=== PATIENT | female | born 1975 | race Caucasian/White ===

== ENCOUNTER → 2025-09-04 | Outpatient (CLI) | payer SELFPAY ==
--- NOTE | 2025-09-04 08:25 | BI_ITS ---
EXAM: SCRN MAMM (CAD)W/NORAH BILAT DATE: 09/04/2025 CLINICAL HISTORY: F, Age 50 y/o , SCREENING No family history. TECHNIQUE: Procedure Code: [id number] Modality: MG Procedure: SCRN MAMM (CAD)W/NORAH BILAT COMPARISON: This is a baseline examination. FINDINGS: TISSUE DENSITY: There are scattered areas of fibroglandular density. Bilateral Breast Mammographic Findings: No significant masses, calcifications or other abnormalities are identified. BI/SCRN MAMM (CAD)W/NORAH BILAT IMPRESSION: Unremarkable bilateral screening mammogram. OVERALL FINAL ASSESSMENT BI-RADS 1: NEGATIVE. RECOMMENDATION: Routine annual follow-up in 1 Year Additional Recommendation none A letter with findings and recommendations will be mailed to the patient. Reading Location: [id number]
== END | disposition home or self-care (01) ==
PROVIDERS: PCP Physician Assistant; Referring Provider Physician Assistant; Visit Provider Physician Assistant
DX: Z12.31 Encounter for screening mammogram for malignant neoplasm of breast (principal)
CPT/HCPCS: 77063; 77067

== ENCOUNTER 2025-10-24 08:10 | Day surgery (SDC) | payer SELFPAY ==
[2025-10-24] VITALS (8 sets, daily range): BP systolic 108–139; BP diastolic 49–83; PULSE 66–89; RESP 16–18; TEMP 36.1–36.8; O2SAT 97–100; BMI 32.0
[2025-10-24] MEDS: Lactated Ringers 1,000 ML 15 ML IV (08:15)
--- NOTE | 2025-10-24 08:47 | H&P.OPEN ---
[facility] - General General Date of Service: 10/24/25 HPI Narrative CHANELL FRAGA, is a 50 F who presents for screening colonoscopy. Patient never had previous colonoscopy. Patient sister was diagnosed with colon cancer at age 57 and mother had 18 polyps. Patient has bowel movements daily denies any blood. Patient denies any chronic abdominal pain/nausea/vomiting/reflux. [facility] Medical History (Updated 10/24/25 @ 08:[address] Lety Holcomb MD) Liver cyst Non-smoker History of pain when walking History of edema Home Medications ?Medication ?Instructions ?Recorded ?Last Taken ?Type cholecalciferol (vitamin D3) 25 25 mcg PO DAILY 10/23/25 10/23/25 History mcg (1,000 unit) capsule (Vitamin D3) chromium 200 mcg tablet 200 mcg PO DAILY 10/23/25 10/23/25 History coenzyme Q10 100 mg capsule (Co 100 mg PO DAILY 10/23/25 Unknown History Q-10) cyanocobalamin (vitamin B-12) 1,000 mcg PO DAILY 10/23/25 10/23/25 History 1,000 mcg tablet (Vitamin B-12) glucosamine 375 yi-nafwjasun-mzc 1 tab PO DAILY 10/23/25 Unknown History no1 500 mg-C 15 mg-claudia 0.5 mg tablet (Ohlihzaekoe-Ioldagreczc-JID Complex) multivitamin (Daily Multi-Vitamin 1 tab PO DAILY 10/23/25 10/23/25 History tablet) omega 3 350 mg-dha 235 mg-epa 90 1 cap PO DAILY 10/23/25 10/23/25 History mg-fish oil 597 mg capsule,delay rel ([place]-3) Allergy/AdvReac Type Severity Reaction Status Date / Time No Known Allergies Allergy Verified 10/23/25 10:40 Surgical History (Updated 10/23/25 @ 10:49 by Sola Bauman) Hx of tubal ligation History of 2 sections Social History Smoking Status: Never smoker Past Medical/Surgical History Planned Operation Planned Operative Procedure(s): COLONOSCOPY-OA Previous Hospitalizations/Surgeries HX Hospitalizations: No Any Problems With Anesthesia: No You/Your Family Experience Fever (Hyperthermia) With Anes: No Cholinesterase deficiency: No Cardiovascular Hx Hypertension: No Respiratory Hx Sleep Apnea: No Hx Respiratory Tract Infection/Cold (presently): No Do You Snore Loudly (louder than talking or can be heard): No Do You Often Feel Tired/ Fatigued/ Sleepy Dring Daytime?: No Has Anyone Observed You Stop Breathing During Sleep?: No Result (for STOP score): Negative Smoking Status: Never smoker Neurological Does patient have nerve stimulator: No Reproduction : No Miscellaneous Recent Exposure to Contagious Disease: No Allergies No Known Allergies Allergy (Verified 10/23/25 10:40) Discharge Is Pt Admitted From a Senior Living, or a Long Term: No After D/C, Where Do you Plan to Go: Return Home Vital Signs Vital Signs Vital Signs: 10/24/25 08:30 10/24/25 08:30 10/24/25 08:30 Temperature 97 F L Temperature Source Temporal Pulse Rate 85 Respiratory Rate 16 Respiratory Pattern Normal Blood Pressure 139/83 H Blood Pressure Mean 101 Blood Pressure Source Monitor Blood Pressure Position Semi-Fowlers Blood Pressure Location Left Forearm Baseline BP 139/83 Pulse Ox 100 Oxygen Delivery Method Room Air Weight Weight: 180 lb 12.465 oz Body Mass Index (BMI) 32.0 Physical Exam Const alert, oriented x3 and no apparent distress HEENT normocephalic and head/scalp atraumatic Resp normal respiratory effort Cardio regular rate GI soft to palpation and non-tender; Negative for non-distended Palpation: Negative for guarding Extremity no clubbing, cyanosis or edema Skin no rashes or lesions noted Neuro CN's II-XII intact bilaterally Psych mental status grossly normal Assessment & Plan Assessment/Plan (1) Family history of colon cancer: Surgery Risks - Colonoscopy I discussed with the patient the risks of the procedure: Yes Risks Include but are not Limited To: Risks include but are not limited to: Bleeding, perforation requiring further surgery, inability to complete colonoscopy requiring barium enema.
--- NOTE | 2025-10-24 09:37 | PRE.ANES_ITS ---
ASA Classification* ASA Classification ASA Classification: 1 Assessment & Plan Anesthesia* Anesthesia Assessment Anesthesia Assessment: Discussed sedation and/or anesthesia options, risks, benefits, and alternatives with patient/parents/legal guardian/POA. Questions invited. The patient/parents/legal guardian/POA seems to understand and agrees to proceed with anesthesia plan. Reviewed the physical assessment, medical history, allergy history and patient home medications list prior to surgery/procedure/anesthetic and documented any changes. Performed airway and anesthesia risk assessments. Patient denies all PMHx; no medical problems. 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 When Was Last Pacemaker Check QUESTION #4 FULL TEXT: You/Your Family Experience fever (hyperthermia) with Anesthesia Last Oral Intake Last Oral intake: Last Oral Intake NPO since 23:30 10/24/25 08:30 Meds taken in AM with sips of No 10/24/25 08:30 water? Meds patient instructed to take am of surgery PONV PONV - malt house loader: PONV - malt house loader Female Yes 10/23/25 10:49 HX of Motion Sickness No 10/23/25 10:49 HX of N/V After Surgery No 10/23/25 10:49 Non-Smoker Yes 10/23/25 10:49 Duration of Surgery greater No 10/23/25 10:49 than 60 minutes Number of Risk Factors 2 10/23/25 10:49 PONV Score Moderate Risk 10/23/25 10:49 Height & Weight Height & Weight: Anesthesia: Height & Weight Height 5 ft 3 in 10/24/25 08:30 Weight: 82 kg 10/24/25 08:30 Body Mass Index (BMI) 32.0 10/24/25 08:30 Respiratory Assessment Respiratory Assessment - malt house loader: Respiratory Tract Infection Hx - malt house loader Hx Respiratory Tract Infection No 10/24/25 08:48 STOP Sleep Apnea STOP Sleep Apnea - malt house loader: STOP Sleep Apnea - malt house loader Hx Hypertension No 10/24/25 08:48 Hx Sleep Apnea No 10/24/25 08:48 CPAP BIPAP Do you snore loudly (louder No 10/24/25 08:48 than talking or can be heard Do you often feel tired/ No 10/24/25 08:48 fatigued/ sleepy during daytime? Has anyone observed you stop No 10/24/25 08:48 breathing during sleep? STOP Results Negative 10/24/25 09:30 QUESTION #5 FULL TEXT : Do you snore loudly (louder than talking or can be heard through closed doors)? 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 Specify any problems Hx of Preganancy in last 3 No 10/23/25 10:49 Months Nurse Filling Out Transfusion VCHRISTIN 10/23/25 10:49 & Questions: Date: 10/23/25 10/23/25 10:49 Time: 10:50 10/23/25 10:49 Patient unable to answer at this time (ie. confused, unrespo /Reproduction History /Reproductive History - malt house loader: /Reproductive Hx- malt house loader Hx Now No 10/24/25 08:48 Gestational Age (in weeks): EDC: Hx Hx Para Hx Section SAB No 10/23/25 10:49 Does the father of the baby or his family experience fever w Father of the baby Malignant Hypertension history comment Active Medications Active Medications: Current Medications Generic Name Dose Route Start Last Admin Trade Name Freq PRN Reason Stop Dose Admin Lactated Ringer's 1,000 mls @ 15 mls/hr 10/24/25 08:15 IV .Q48H WILLIAN PFSH Medical History (Updated 10/24/25 @ 08:[address] Lety Holcomb MD) Liver cyst Non-smoker History of pain when walking History of edema Home Medications ?Medication ?Instructions ?Recorded ?Last Taken ?Type cholecalciferol (vitamin D3) 25 25 mcg PO DAILY 10/23/25 History mcg (1,000 unit) capsule (Vitamin D3) chromium 200 mcg tablet 200 mcg PO DAILY 10/23/25 History coenzyme Q10 100 mg capsule (Co 100 mg PO DAILY Unknown History Q-10) cyanocobalamin (vitamin B-12) 1,000 mcg PO DAILY 10/2310/23/25 History 1,000 mcg tablet (Vitamin B-12) glucosamine 375 iy-znswzdoci-cdz 1 tab PO DAILY Unknown History no1 500 mg-C 15 mg-claudia 0.5 mg tablet (Xpbaehvnkji-Gmysyfemnad-TUJ Complex) multivitamin (Daily Multi-Vitamin 1 tab PO DAILY 10/2310/23/25 History tablet) omega 3 350 mg-dha 235 mg-epa 90 1 cap PO DAILY 10/23/25 History mg-fish oil 597 mg capsule,delay rel ([place]-3) Allergy/AdvReac Type Severity Reaction Status Date / Time No Known Allergies Allergy Verified 10/23/25 10:40 Surgical History (Updated 10/23/25 @ 10:49 by Sola Bauman) Hx of tubal ligation History of 2 sections Social History Smoking Status: Never smoker Review of Systems (Anesthesia) ROS Narrative System reviewed and no additional complaints, except as documented. Physical Exam Const alert, oriented x3 and average body habitus Resp normal respiratory effort, normal air movement and clear to auscultation bilaterally Cardio regular rate, regular rhythm and no murmurs; Negative for diaphoretic
--- NOTE | 2025-10-24 10:37 | OP.COLON_ITS ---
Patient Name: Annel Colrey Procedure Date: 10/24/2025 10:03 AM Date of : 1975 Age: 50 Procedure: Colonoscopy Indications: Family history of colon cancer in a first-degree relative before age 60 years Providers: Lety Holcomb MD Referring MD: Karyn Allen Medicines: Monitored Anesthesia Care Patient Profile: This is a 50 year old female. Last Colonoscopy: none. The patient's first colonoscopy is today. Complications: No immediate complications. Procedure: Pre-Anesthesia Assessment: - Prior to the procedure, a History and Physical was performed, and patient medications and allergies were reviewed. The patient's tolerance of previous anesthesia was also reviewed. The risks and benefits of the procedure and the sedation options and risks were discussed with the patient. All questions were answered, and informed consent was obtained. Prior Anticoagulants: The patient has taken no anticoagulant or antiplatelet agents. ASA Grade Assessment: Per anesthesia. After reviewing the risks and benefits, the patient was deemed in satisfactory condition to undergo the procedure. After I obtained informed consent, the scope was passed under direct vision. Throughout the procedure, the patient's blood pressure, pulse, and oxygen saturations were monitored continuously. The Colonoscope was introduced through the anus and advanced to the cecum, identified by the appendiceal orifice, ileocecal valve and palpation. The colonoscopy was performed without difficulty. The patient tolerated the procedure well. The quality of the bowel preparation was good. Scope In: 10:15:42 AM Scope Withdrawal Time 0 hours 9 minutes 28 seconds Scope Out: 10:32:05 AM Total Procedure Duration Time 0 hours 16 minutes 23 seconds Findings: The perianal and digital rectal examinations were normal. The entire examined colon appeared normal on direct and retroflexion views. Impression: - The entire examined colon is normal on direct and retroflexion views. - No specimens collected. Recommendation: - Discharge patient to home. - Resume previous diet. - Continue present medications. - Repeat colonoscopy in 5 years for screening purposes. Procedure Code(s): --- Professional --- 30726, PT, Colonoscopy, flexible; diagnostic, including collection of specimen(s) by brushing or washing, when performed (separate procedure) Diagnosis Code(s): --- Professional --- Z80.0, Family history of malignant neoplasm of digestive organs CPT copyright 2022 [employer]. All rights reserved. The codes documented in this report are preliminary and upon carpet inspector finished review may be revised to meet current compliance requirements. MD Lety Holt MD 10/24/2025 10:36:37 AM This report has been signed electronically. Number of Addenda: 0 Note Initiated On: 10/24/2025 10:03 AM
--- NOTE | 2025-10-24 10:37 | OP.PROVAT_ITS ---
10/24/2025 Karyn Allen Re : Colonoscopy procedure for Annel Dyerjazmyne Allen This procedure was performed on Friday, October 24, 2025. My impressions and recommendations are as follows: Impressions : - The entire examined colon is normal on direct and retroflexion views. - No specimens collected. Recommendations : - Discharge patient to home. - Resume previous diet. - Continue present medications. - Repeat colonoscopy in 5 years for screening purposes. My findings are described in the full procedure note, which is enclosed. If I can be of further assistance, please feel free to contact me at Doctor phone number(s): , Work: . Sincerely, MD Lety Holt MD 10/24/2025 10:36:37 AM This report has been signed electronically.
--- NOTE | 2025-10-24 10:40 | PCM.POST.ANE ---
Anesthesia: Postop Eval I Current Vital Signs Temperature: 98.3 F Pulse Rate: 89 Blood Pressure: 111/49 Respiratory Rate: 16 Pulse Ox: 97 Oxygen Delivery Method: Room Air Assessment Airway patent: Yes Spontaneous unlabored respirations: Yes Mental status: Awake and Calm nausea: No Vomiting: No Anesthesia Complication: No Fluid Hydration Crystalloid volume administer (ml): 400 Total IV fluid infused: 400 Progress Note Anesthesia document: Postop Eval 1 completed: Yes
--- NOTE | 2025-10-24 11:34 | POSTOPAN2_ITS ---
Anesthesia Postop Eval I Sum Postop Eval Completion status Anesthesia document: Postop Eval 1 completed: Yes Anesthesia Postop Eval I Summary Anesthesia Postop Eval I Summary: Anesthesia Postop Eval I: Assessment Summary Airway patent Yes 10/24/25 10:41 [employer]OS[employer] ACCESS DEVELOPER.GDOTT Spontaneous unlabored Yes 10/24/25 10:41 MICROS[employer] ACCESS DEVELOPER.GDOTT respirations Mental status Awake,Calm 10/24/25 10:41 MICROSOFT ACCESS DEVELOPER.GDOTT nausea No 10/24/25 10:41 MICROS[employer]FT ACCESS DEVELOPER.GDOTT Vomiting No 10/24/25 10:41 MICROSO[employer] ACCESS DEVELOPER.GDOTT Anesthesia Postop Eval I: Fluid Summary Crystalloid volume administer 400 10/24/25 10:41 MICROSOFT ACCESS DEVELOPER.GDOTT (ml) Colloids volume administered ( ml) Blood Product volume administered (ml) Total IV fluid infused 400 10/24/25 10:41 MICROSO[employer] ACCESS DEVELOPER.GDOTT Anesthesia Postop Eval I: Summary Notes Anesthesia Complication No 10/24/25 10:41 MICROSOFT ACCESS DEVELOPER.GDOTT Anesthesia Complication Comment: Post-operative progress note Anesthesia: Postop Eval II Evaluation Mental status: Awake Pain Level: 0 nausea: No Vomiting: No Complications Anesthesia Complication: No
--- NOTE | 2025-10-24 11:34 | PCM.POSTANE2 ---
Anesthesia Postop Eval I Sum Postop Eval Completion status Anesthesia document: Postop Eval 1 completed: Yes Anesthesia Postop Eval I Summary Anesthesia Postop Eval I Summary: Anesthesia Postop Eval I: Assessment Summary Airway patent Yes 10/24/25 10:41 JEWEL BEARING FACER.GDOTT Spontaneous unlabored Yes 10/24/25 10:41 JEWEL BEARING FACER.GDOTT respirations Mental status Awake,Calm 10/24/25 10:41 JEWEL BEARING FACER.GDOTT nausea No 10/24/25 10:41 JEWEL BEARING FACER.GDOTT Vomiting No 10/24/25 10:41 JEWEL BEARING FACER.GDOTT Anesthesia Postop Eval I: Fluid Summary Crystalloid volume administer 400 10/24/25 10:41 JEWEL BEARING FACER.GDOTT (ml) Colloids volume administered ( ml) Blood Product volume administered (ml) Total IV fluid infused 400 10/24/25 10:41 JEWEL BEARING FACER.GDOTT Anesthesia Postop Eval I: Summary Notes Anesthesia Complication No 10/24/25 10:41 JEWEL BEARING FACER.GDOTT Anesthesia Complication Comment: Post-operative progress note Anesthesia: Postop Eval II Evaluation Mental status: Awake Pain Level: 0 nausea: No Vomiting: No Complications Anesthesia Complication: No
== END 2025-10-24 11:19 | disposition home or self-care (01) ==
LOC: EN 08:14 → AC 08:14
PROVIDERS: PCP Physician Assistant; Referring Provider Physician Assistant; Visit Provider Surgery
PROC: 0DJD8ZZ Inspection of Lower Intestinal Tract, Via Natural or Artificial Opening Endoscopic (ICD-10-PCS; CPT 45378; principal; 2025-10-24 09:25)
DX: Z12.11 Encounter for screening for malignant neoplasm of colon (principal); Z80.0 Family history of malignant neoplasm of digestive organs; Z83.719 Family history of colon polyps, unspecified; Z98.51 Tubal ligation status
CPT/HCPCS: 45378; J2405